=== PATIENT | male | born 1965 | race Caucasian/White ===

== ENCOUNTER 2022-12-25 04:15 | Emergency (ER) | payer OTHER ==
[2022-12-25 05:14] LABS: CHLORIDE,CL 99 mmol/L (98-107); SODIUM,NA 134 mmol/L (136-145)
[2022-12-25 05:20] LABS: ANION GAP 13.1 mmol/L (5-15); ESTIMATED GFR 63 mL/min (>=60)
== END 2022-12-25 07:58 | disposition home or self-care (01) ==
LOC: VM.ED 04:15
DX: R55 Syncope and collapse (principal)
CPT/HCPCS: 36415; 70450; 80053; 81001; 82550; 83615; 84484; 85025; 85379; 86140; 99285